=== PATIENT | male | born 2005 | race Caucasian/White ===

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

== ENCOUNTER 2024-09-16 16:51 | Emergency (ER) | payer OTHER, SELFPAY ==
[2024-09-16] MEDS ORDERED: Amoxicillin/Potassium Clav 875 MG TAB ONE (17:17)
[2024-09-16] MEDS ORDERED: HYDROcodone/Acetaminophen 10/325 mg Tablet ONE (17:17)
== END 2024-09-16 17:52 | disposition home or self-care (01) ==
LOC: MADERS 16:51
DX: K04.7 Periapical abscess without sinus (principal); K03.81 Cracked tooth; K02.9 Dental caries, unspecified; F17.210 Nicotine dependence, cigarettes, uncomplicated; F17.290 Nicotine dependence, other tobacco product, uncomplicated
CPT/HCPCS: 99282